=== PATIENT | female | born 1985 | race Caucasian/White ===

== ENCOUNTER 2017-02-04 23:13 | Emergency (ER) | payer MEDICAID ==
[2017-02-05 01:02] VITALS: BP 128/74
== END 2017-02-05 01:02 | disposition home or self-care (01) ==
LOC: ED 23:13
DX: R07.89 Other chest pain (principal); R06.02 Shortness of breath
CPT/HCPCS: J1885; Q0092

== ENCOUNTER 2017-03-14 19:33 | Emergency (ER) | payer MEDICAID ==
[2017-03-14 21:58] LABS: BASOPHIL % 0.7 % (0-2); PLATELET COUNT 277 x10^3mcL (130-400)
[2017-03-14 21:59] LABS: RED CELL DISTRIBUTION WIDTH 16.1 % (11.5-14.5)
[2017-03-14 22:15] LABS: CALCIUM 8.7 mg/dL (8.5-10.1); CARBON DIOXIDE 24.8 mmol/L (21-32); CHLORIDE SERUM 106 mmol/L (98-107); CREATININE SERUM 0.7 mg/dL (0.6-1.0); GFR1 > 60 mL/min; GLUCOSE SERUM 96 mg/dL (74-106); POTASSIUM SERUM 3.6 mmol/L (3.5-5.1); SODIUM SERUM 142 mmol/L (136-145)
[2017-03-14 22:42] LABS: FREE T4 1.16 ng/dL (0.76-1.46)
[2017-03-14 23:26] VITALS: BP 135/75
== END 2017-03-14 23:26 | disposition home or self-care (01) ==
LOC: ED 19:33
PROVIDERS: Emergency Medicine
DX: R07.9 Chest pain, unspecified (principal); R00.2 Palpitations
CPT/HCPCS: 36415; 84439; Q0092

== ENCOUNTER 2017-05-30 16:40 | Emergency (ER) | payer MEDICAID ==
[2017-05-30 18:04] LABS: BASOPHIL % 0.3 % (0-2); PLATELET COUNT 269 x10^3mcL (130-400)
[2017-05-30 18:05] LABS: RED CELL DISTRIBUTION WIDTH 15.1 % (11.5-14.5)
[2017-05-30 18:07] LABS: CALCIUM 8.6 mg/dL (8.5-10.1); CHLORIDE SERUM 104 mmol/L (98-107); CREATININE SERUM 0.6 mg/dL (0.6-1.0); GFR1 > 60 mL/min; GLUCOSE SERUM 102 mg/dL (74-106); POTASSIUM SERUM 3.5 mmol/L (3.5-5.1); SODIUM SERUM 140 mmol/L (136-145)
[2017-05-30 18:11] LABS: CARBON DIOXIDE 26.4 mmol/L (21-32)
[2017-05-30 18:27] VITALS: BP 135/72
[2017-05-30 18:45] LABS: microscopic required? YES; urine erythrocyte TRACE (NEGATIVE)
== END 2017-05-30 19:20 | disposition home or self-care (01) ==
LOC: ED 16:40
PROVIDERS: Emergency Medicine
DX: R42 Dizziness and giddiness (principal); R03.0 Elevated blood-pressure reading, without diagnosis of hypertension
CPT/HCPCS: 36415

== ENCOUNTER 2017-07-11 17:07 | Emergency (ER) | payer MEDICAID ==
[~2017-07-11] VITALS: Ht 157.5 cm; Wt 93.2 kg
[2017-07-11 20:59] VITALS: BP 130/74
== END 2017-07-11 20:59 | disposition home or self-care (01) ==
LOC: ED 17:07
DX: F41.1 Generalized anxiety disorder (principal)

== ENCOUNTER 2017-07-24 16:56 | Emergency (ER) | payer MEDICAID ==
[~2017-07-24] VITALS: Ht 165.1 cm; Wt 93.9 kg
[2017-07-24 17:07] VITALS: Ht 165.1 cm; Wt 93.9 kg
[2017-07-24 20:24] LABS: BASOPHIL % 0.3 % (0-2); PLATELET COUNT 265 x10^3mcL (130-400)
[2017-07-24 20:25] LABS: RED CELL DISTRIBUTION WIDTH 14.9 % (11.5-14.5)
[2017-07-24 20:27] LABS: CALCIUM 8.5 mg/dL (8.5-10.1); CARBON DIOXIDE 26.9 mmol/L (21-32); CHLORIDE SERUM 104 mmol/L (98-107); CREATININE SERUM 0.5 mg/dL (0.6-1.0); GFR1 > 60 mL/min; GLUCOSE SERUM 88 mg/dL (74-106); POTASSIUM SERUM 3.5 mmol/L (3.5-5.1); SODIUM SERUM 140 mmol/L (136-145)
[2017-07-24 20:33] LABS: ALBUMIN 3.6 g/dL (3.4-5.0); ALKALINE PHOSPHATASE 72 U/L (46-116); ALT/SGPT 34 U/L (14-59); AST/SGOT 14 U/L (15-37); BILIRUBIN TOTAL 0.27 mg/dL (0.20-1.00); CHOLESTEROL 174 mg/dL (<200); CHOLESTEROL/HDL RATIO 3.5; HDL CHOLESTEROL 50 mg/dL (40-60); LIPASE 157 IU/L (73-393); TRIGLYCERIDES 174 mg/dL (<150)
[2017-07-24 20:41] LABS: UA SPECIFIC GRAVITY <=1.005 (1.005-1.035); microscopic required? YES; urine erythrocyte TRACE (NEGATIVE)
[2017-07-24 20:56] LABS: T3 TOTAL 1.04 ng/mL
[2017-07-24 20:57] LABS: FREE T4 1.03 ng/dL (0.76-1.46); FREE THYROXINE INDEX 3.1 ug/dL (1.4-4.5); T4(THYROXINE) 10.4 ug/dL (4.7-13.3)
[2017-07-24 21:02] VITALS: BP 143/88
== END 2017-07-24 21:02 | disposition home or self-care (01) ==
LOC: ED 16:56
PROVIDERS: Specialist
DX: R07.89 Other chest pain (principal)
CPT/HCPCS: 36415; 83880; 84439; Q0092

== ENCOUNTER 2017-09-23 16:16 | Emergency (ER) | payer MEDICAID ==
[~2017-09-23] VITALS: Ht 165.1 cm; Wt 93.4 kg
[2017-09-23 16:20] VITALS: BP 142/89; Ht 165.1 cm; Wt 93.4 kg
== END 2017-09-23 18:09 | disposition home or self-care (01) ==
LOC: ED 16:16
DX: O26.891 Other specified pregnancy related conditions, first trimester (principal); J06.9 Acute upper respiratory infection, unspecified; R03.0 Elevated blood-pressure reading, without diagnosis of hypertension; Z3A.00 Weeks of gestation of pregnancy not specified

== ENCOUNTER 2017-09-26 18:59 | Emergency (ER) | payer MEDICAID ==
[~2017-09-26] VITALS: Ht 165.1 cm; Wt 93.2 kg
[2017-09-26 19:40] VITALS: Ht 165.1 cm; Wt 93.2 kg
[2017-09-26 23:48] VITALS: BP 116/73
== END 2017-09-26 23:48 | disposition home or self-care (01) ==
LOC: ED 18:59
DX: O26.891 Other specified pregnancy related conditions, first trimester (principal); R10.32 Left lower quadrant pain; O99.511 Diseases of the respiratory system complicating pregnancy, first trimester; Z3A.01 Less than 8 weeks gestation of pregnancy; Z90.49 Acquired absence of other specified parts of digestive tract

== ENCOUNTER 2018-06-14 20:17 | Emergency (ER) | payer MEDICAID ==
[~2018-06-14] VITALS: Ht 167.6 cm; Wt 85.7 kg
[2018-06-14 20:20] VITALS: Ht 167.6 cm; Wt 85.7 kg
[2018-06-14 21:21] VITALS: BP 159/96
== END 2018-06-14 21:21 | disposition home or self-care (01) ==
LOC: ED 20:17
DX: G44.209 Tension-type headache, unspecified, not intractable (principal); M43.6 Torticollis; Z98.890 Other specified postprocedural states
CPT/HCPCS: 20552; J1885; J2001

== ENCOUNTER 2018-07-22 15:07 | Emergency (ER) | payer MEDICAID ==
[~2018-07-22] VITALS: Ht 167.6 cm; Wt 84.4 kg
[2018-07-22 15:10] VITALS: Ht 167.6 cm; Wt 84.4 kg
[2018-07-22 17:26] VITALS: BP 144/89
== END 2018-07-22 17:26 | disposition home or self-care (01) ==
LOC: ED 15:07
DX: R51 Headache (principal); R42 Dizziness and giddiness; Z98.890 Other specified postprocedural states
CPT/HCPCS: 82962; J1200; J1885; J2765

== ENCOUNTER 2018-07-28 16:15 | Emergency (ER) | payer MEDICAID ==
[~2018-07-28] VITALS: Ht 167.6 cm; Wt 82.6 kg
[2018-07-28 17:02] VITALS: Ht 167.6 cm; Wt 82.6 kg
[2018-07-28 19:21] VITALS: BP 165/103
== END 2018-07-28 19:21 | disposition home or self-care (01) ==
LOC: ED 16:15
DX: G44.209 Tension-type headache, unspecified, not intractable (principal); Z98.890 Other specified postprocedural states
CPT/HCPCS: J0780; J1885

== ENCOUNTER 2018-08-19 18:49 | Emergency (ER) | payer MEDICAID ==
[~2018-08-19] VITALS: Ht 170.2 cm; Wt 83.0 kg
[2018-08-19 19:22] VITALS: Ht 170.2 cm; Wt 83.0 kg
[2018-08-19 19:49] VITALS: BP 127/86
== END 2018-08-19 19:49 | disposition home or self-care (01) ==
LOC: ED 18:49
DX: L03.311 Cellulitis of abdominal wall (principal); Z90.49 Acquired absence of other specified parts of digestive tract; Z98.890 Other specified postprocedural states

== ENCOUNTER 2018-11-13 09:05 | Emergency (ER) | payer MEDICAID ==
[~2018-11-13] VITALS: Ht 165.1 cm; Wt 88.0 kg
[2018-11-13 09:12] VITALS: Ht 165.1 cm; Wt 88.0 kg
[2018-11-13 09:33] VITALS: BP 149/95
== END 2018-11-13 09:33 | disposition home or self-care (01) ==
LOC: ED 09:05
DX: J36 Peritonsillar abscess (principal); I10 Essential (primary) hypertension; Z98.890 Other specified postprocedural states; Z90.49 Acquired absence of other specified parts of digestive tract; Z86.2 Personal history of diseases of the blood and blood-forming organs and certain disorders involving the immune mechanism

== ENCOUNTER 2018-12-29 15:23 | Emergency (ER) | payer MEDICAID ==
[~2018-12-29] VITALS: Ht 167.6 cm; Wt 90.3 kg
[2018-12-29 15:32] VITALS: Ht 167.6 cm; Wt 90.3 kg
[2018-12-29 16:38] LABS: PLATELET COUNT 285 x10^3mcL (130-400)
[2018-12-29 16:39] VITALS: BP 156/89
[2018-12-29 16:39] LABS: RED CELL DISTRIBUTION WIDTH 15.4 % (11.5-14.5)
[2018-12-29 16:54] LABS: CARBON DIOXIDE 25.6 mmol/L (21-32); CHLORIDE SERUM 103 mmol/L (98-107); CREATININE SERUM 0.6 mg/dL (0.6-1.0); GFR1 > 60 mL/min; GLUCOSE SERUM 95 mg/dL (74-106); POTASSIUM SERUM 4.2 mmol/L (3.5-5.1); SODIUM SERUM 139 mmol/L (136-145)
[2018-12-29 16:59] LABS: ALBUMIN 3.7 g/dL (3.4-5.0); ALKALINE PHOSPHATASE 76 U/L (46-116); ALT/SGPT 30 U/L (14-59); AST/SGOT 19 U/L (15-37); BILIRUBIN TOTAL 0.4 mg/dL (0.20-1.00)
== END 2018-12-29 17:32 | disposition home or self-care (01) ==
LOC: ED 15:23
PROVIDERS: Emergency Medicine
DX: R07.89 Other chest pain (principal); D64.9 Anemia, unspecified; I10 Essential (primary) hypertension; Z90.49 Acquired absence of other specified parts of digestive tract; Z98.890 Other specified postprocedural states
CPT/HCPCS: 36415

== ENCOUNTER 2019-09-24 19:23 | Emergency (ER) | payer MEDICAID ==
[~2019-09-24] VITALS: Ht 162.6 cm; Wt 96.2 kg
[2019-09-24 19:38] VITALS: Ht 162.6 cm; Wt 96.2 kg
[2019-09-24 21:29] LABS: BASOPHIL % 0.6 % (0-2); PLATELET COUNT 369 x10^3mcL (130-400); RED CELL DISTRIBUTION WIDTH 17.6 % (11.5-14.5)
[2019-09-24 21:55] LABS: CALCIUM 8.6 mg/dL (8.5-10.1); CARBON DIOXIDE 30.3 mmol/L (21-32); CHLORIDE SERUM 104 mmol/L (98-107); CREATININE SERUM 0.6 mg/dL (0.6-1.0); GFR1 > 60 mL/min; GLUCOSE SERUM 100 mg/dL (74-106); POTASSIUM SERUM 3.3 mmol/L (3.5-5.1); SODIUM SERUM 142 mmol/L (136-145)
[2019-09-24 22:00] LABS: ALBUMIN 3.7 g/dL (3.4-5.0); ALKALINE PHOSPHATASE 83 U/L (46-116); ALT/SGPT 37 U/L (14-59); AST/SGOT 20 U/L (15-37); BILIRUBIN TOTAL 0.2 mg/dL (0.20-1.00)
[2019-09-24 22:00] LABS: UA SPECIFIC GRAVITY >=1.030 (1.005-1.035); microscopic required? YES; urine erythrocyte 3+ (NEGATIVE)
[2019-09-24 22:02] LABS: TOTAL PROTEIN, SERUM 8.4 g/dL (6.4-8.2)
[2019-09-24 22:29] VITALS: BP 124/83
== END 2019-09-24 22:50 | disposition home or self-care (01) ==
LOC: ED 19:23
PROVIDERS: Emergency Medicine
DX: N39.0 Urinary tract infection, site not specified (principal); R42 Dizziness and giddiness; I10 Essential (primary) hypertension; Z98.890 Other specified postprocedural states; Z90.49 Acquired absence of other specified parts of digestive tract; Z86.2 Personal history of diseases of the blood and blood-forming organs and certain disorders involving the immune mechanism
CPT/HCPCS: 36415

== ENCOUNTER 2020-01-26 16:41 | Emergency (ER) | payer MEDICAID ==
[~2020-01-26] VITALS: Ht 165.1 cm; Wt 91.2 kg
[2020-01-26 16:55] VITALS: Ht 165.1 cm; Wt 91.2 kg
[2020-01-26 19:53] VITALS: BP 135/92
== END 2020-01-26 19:53 | disposition home or self-care (01) ==
LOC: ED 16:41
DX: R07.89 Other chest pain (principal); I10 Essential (primary) hypertension; Z86.2 Personal history of diseases of the blood and blood-forming organs and certain disorders involving the immune mechanism; Z90.49 Acquired absence of other specified parts of digestive tract